=== PATIENT | female | born 1950 | race Caucasian/White ===

== ENCOUNTER 2016-03-11 08:11 | Emergency (ER) | payer BC ==
[2016-03-11] MEDS ORDERED: HYDROmorphone INJ* 1 MG/ML CARPUJECT SYRINGE IV ONE (09:28)
[2016-03-11] MEDS ORDERED: Ondansetron INJ* 2 MG/ML VIAL IV ONE ×2 (09:28→12:58)
[2016-03-11 09:38] LABS: Hematocrit 41 % (35-47); Hemoglobin 13.7 g/dl (12.0-16.0); Mean Corpuscular HGB Conc 34 g/dl (31-36); Mean Corpuscular Hemoglobin 30 pg (27-31); Mean Corpuscular Volume 89 fL (80-97); Mean Platelet Volume 9 um3 (7.4-10.4); Red Blood Count 4.55 10^6/ul (4.0-5.4); Red Cell Distribution Width 14 % (10.5-15); White Blood Count 10.3 10^3/ul (3.5-10.8)
[2016-03-11 09:47] LABS: Urine Bacteria Absent (Absent); Urine Bilirubin Negative (Negative); Urine Glucose Negative (Negative); Urine Nitrite Negative (Negative)
[2016-03-11 09:50] LABS: Albumin 4.3 g/dL (3.2-5.2); BUN/Creatinine Ratio 19.8 (8-20); C Reactive Protein 6.21 mg/L (< 5.00); Calcium 9.6 mg/dL (8.6-10.3); EGFR African American 54.8 (>60); EGFR Non-African American 42.6 (>60); Total Bilirubin 0.9 mg/dL (0.2-1.0); Total Protein 7.3 g/dL (6.4-8.9)
--- NOTE | 2016-03-11 10:27 | RAD ---
INDICATION: RIGHT flank pain, urinary urgency, pink-tinged urine. History of urolithiasis. COMPARISON: April 25, [address] TECHNIQUE: Multidetector CT images were obtained from the lung bases to the ischial tuberosities. Evaluation of the viscera is limited without IV contrast. Multiplanar reformation. REPORT: Minimal chronic linear pleural parenchymal scarring at the RIGHT lung base. The liver, gallbladder, pancreas, and spleen are unremarkable. Small infrasplenic splenule. Negative for CT abnormality of the upper GI, small bowel, retrocecal appendix, or colon. Negative for ascites, free air, hernias. Normal adrenal glands. Small calyceal stones at the mid and lower pole of the RIGHT kidney measuring up to 2 mm. Mild RIGHT hydroureteronephrosis is traced to a 3 mm stone at the RIGHT ureterovesicular junction. Associated mild periureteral and perinephric edema. Negative for LEFT urolithiasis. Small phleboliths noted adjacent to the distal ureters. Aside from the RIGHT UVJ stone the largely decompressed urinary bladder is unremarkable. Unremarkable uterus and adnexal regions. Minimal calcific plaque of normal diameter abdominal aorta. Physiologic distention of the IVC. Negative for suspicious osseous lesions. IMPRESSION: Mild RIGHT hydronephrosis is traced to a 3 mm RIGHT ureterovesicular junction stone. Additional small RIGHT intrarenal collecting system stones.
[2016-03-11] MEDS ORDERED: HYDROmorphone INJ* 1 MG/ML CARPUJECT SYRINGE IV SLOW PU ONE ×2 (10:52→12:52)
[2016-03-11] MEDS ORDERED: NS 0.9% 1000 ML* 2,000 ML IV ONE (10:53)
[2016-03-11 11:55] LABS: Urine Bacteria Absent (Absent); Urine Bilirubin Negative (Negative); Urine Glucose Negative (Negative); Urine Nitrite Negative (Negative)
[2016-03-11] MEDS ORDERED: Tamsulosin CAP* 0.4 MG PO ONE (11:59)
[2016-03-11] MEDS ORDERED: Ondansetron INJ* 2 MG/ML VIAL ONE (12:57)
[2016-03-11 13:35] VITALS: BP 142/66
--- NOTE | 2016-03-11 13:51 | ED ---
Burton Noriega Matthew, scribed for Ezio Lechuga MD on 03/11/16 at 0954 . GI/ HPI - HPI Summary HPI Summary: A 66 y/o female presents to the ED with sudden, constant right flank pain since 05:30 this morning. The pain is rated 9/10 in severity and radiates to the back. The patient states that she attempted to urinated at 05:30 this morning when the pain began. Associated symptoms include difficulty urinating, vomiting , nausea, dysuria and hematuria. The patient saw Dr. High on 03/08/16, where she had an US. At that time, multiple kidney stones were noted. The patient attempted to eat and drink between 06:00-06:30; however, she vomited the food and her medication. She has been unable to get comfortable from the pain. The patient has a Hx of renal lithiasis, but she has never had an obstructed kidney stone in the past. She last ate at 06:30 this morning. - History of Current Complaint Chief Complaint: EDUrogenitalProblems Time Seen by Provider: 03/11/16 09:24 Stated Complaint: RT SIDE FLANK PAIN/POSS KIDNEY STONE Hx Obtained From: Patient Onset/Duration: Started Hours Ago, Atraumatic, Still Present Timing: Constant Severity: Moderate Current Severity: Moderate Pain Intensity: 9 Location of Pain: Flank - right Pain Characteristics: Sharp Pain Radiates to: Back Associated Signs and Symptoms: Positive: Nausea, Vomiting, Dysuria, Other: - hematuria - Allergy/Home Medications Allergies/Adverse Reactions: Allergies Allergy/AdvReac Type Severity Reaction Status Date / Time Acetaminophen [From Tylenol] AdvReac Intermediate See Comment Verified 03/11/16 08:59 Ofloxacin [From Floxin] AdvReac Intermediate Stomach Verified 03/11/16 08:59 Cramps PMH/Surg Hx/FS Hx/Imm Hx Endocrine/Hematology History: Denies: Hx Diabetes, Hx Thyroid Disease Cardiovascular History: Reports: Hx Hypertension Respiratory History: Denies: Hx Asthma, Hx Chronic Obstructive Pulmonary Disease (COPD) GI History: Denies: Hx Ulcer - Surgical History Surgery Procedure, Year, and Place: 2007 Right breast biopsy - benign - duct and cyst was taken out. 01/04/12 - Left breast duct biopsy - benign. 1988 laser laparoscopy for endometriosis. IVF/GIFT . 2 miscarriages. Infectious Disease History: No Infectious Disease History: Denies: Hx Hepatitis, Hx Human Immunodeficiency Virus (HIV), History Other Infectious Disease, Traveled Outside the [place] in Last 30 Days - Family History Known Family History: Negative: Hypertension Family History: No FHx of kidney stones - Social History Alcohol Use: Occasionally Substance Use Type: Reports: None Smoking Status (MU): Never Smoked Tobacco Review of Systems Constitutional: Negative Eyes: Negative ENT: Negative Cardiovascular: Negative Respiratory: Negative Positive: Abdominal Pain - Right Flank Pain , Vomiting, Nausea Genitourinary: Other - Difficulty urinating Positive: dysuria, hematuria Positive: Myalgia - Back Pain Skin: Negative Neurological: Negative Psychological: Normal All Other Systems Reviewed And Are Negative: Yes Physical Exam - Summary Physical Exam Summary: The patient is uncomfortable. The skin is warm and dry and skin color reflects adequate perfusion. HEENT: The head is normocephalic and atraumatic. The pupils are equal and reactive. The conjunctivae are clear and without drainage. Nares are patent and without drainage. Mouth reveals dry mucous membranes and the throat is without erythema and exudate. The external ears are intact. The ear canals are patent and without drainage. The tympanic membranes are intact. Neck is supple with full range of motion and non-tender. There are no carotid bruits. There is no neck vein distension. Respiratory: Chest is non-tender. Lungs are clear to auscultation and breath sounds are symmetrical and equal. Cardiovascular: Heart is regular rate and rhythm. There is no murmur or rub auscultated. There is no peripheral edema and pulses are symmetrical and equal. Abdomen: The abdomen is soft. She has right flank pain and right CVA tenderness. There are normal bowel sounds heard in all four quadrants and there is no organomegaly palpated. Musculoskeletal: Extremities are non-tender with full range of motion. There is good capillary refill. There is no peripheral edema or calf tenderness elicited. Neurological: Patient is alert and oriented to person, place and time. The patient has symmetrical motor strength in all four extremities. Cranial nerves are grossly intact. Deep tendon reflexes are symmetrical and equal in all four extremities. Psychiatric: The patient is anxious. Triage Information Reviewed: Yes Vital Signs On Initial Exam: Initial Vitals Temp Pulse Resp BP Pulse Ox 97.3 F 80 18 153/80 100 03/11/16 08:54 03/11/16 08:54 03/11/16 08:54 03/11/16 08:54 03/11/16 08:54 Vital Signs Reviewed: Yes - Randy Coma Scale Coma Scale Total: 15 Diagnostics - Vital Signs Vital Signs Temp Pulse Resp BP Pulse Ox 03/11/16 08:54 97.3 F 80 18 153/80 100 - Laboratory Lab Results: Lab Results 03/11/16 03/11/16 03/11/16 Range/Units 09:05 09:05 09:05 WBC 10.3 (3.5-10.8) 10^3/ul RBC 4.55 (4.0-5.4) 10^6/ul Hgb 13.7 (12.0-16.0) g/dl Hct 41 (35-47) % MCV 89 (80-97) fL MCH 30 (27-31) pg MCHC 34 (31-36) g/dl RDW 14 (10.5-15) % Plt Count 244 (150-450) 10^3/ul MPV 9 (7.4-10.4) um3 Neut % (Auto) 85.7 H (38-83) % Lymph % (Auto) 9.0 L (25-47) % [place] % (Auto) 4.1 (1-9) % Eos % (Auto) 0.6 (0-6) % Baso % (Auto) 0.6 (0-2) % Absolute Neuts (auto) 8.8 H (1.5-7.7) 10^3/ul Absolute Lymphs (auto) 0.9 L (1.0-4.8) 10^3/ul Absolute Monos (auto) 0.4 (0-0.8) 10^3/ul Absolute Eos (auto) 0.1 (0-0.6) 10^3/ul Absolute Basos (auto) 0.1 (0-0.2) 10^3/ul Absolute Nucleated RBC 0 10^3/ul Nucleated RBC % 0 Sodium 138 (133-145) mmol/L Potassium 4.0 (3.5-5.0) mmol/L Chloride 105 (101-111) mmol/L Carbon Dioxide 24 (22-32) mmol/L Anion Gap 9 (2-11) mmol/L BUN 25 H (6-24) mg/dL Creatinine 1.26 H (0.51-0.95) mg/dL Est GFR ( Amer) 54.8 (>60) Est GFR (Non-Af Amer) 42.6 (>60) BUN/Creatinine Ratio 19.8 (8-20) Glucose 129 H (70-100) mg/dL Lactic Acid (0.5-2.0) mmol/L Calcium 9.6 (8.6-10.3) mg/dL Total Bilirubin 0.90 (0.2-1.0) mg/dL AST 25 (13-39) U/L ALT 31 (7-52) U/L Alkaline Phosphatase 89 (34-104) U/L C-Reactive Protein 6.21 H (< 5.00) mg/L Total Protein 7.3 (6.4-8.9) g/dL Albumin 4.3 (3.2-5.2) g/dL Globulin 3.0 (2-4) g/dL Albumin/Globulin Ratio 1.4 (1-3) Lipase 34 (11.0-82.0) U/L Urine Color Janet Urine Appearance Turbid Urine pH 6.0 (5-9) Ur Specific [place] 1.026 (1.010-1.030) Urine Protein 2+(100 mg/dl) H (Negative) Urine Ketones Negative (Negative) Urine Blood 3+ H (Negative) Urine Nitrate Negative (Negative) Urine Bilirubin Negative (Negative) Urine Urobilinogen Negative (Negative) Ur Leukocyte Esterase 3+ H (Negative) Urine WBC (Auto) 1+(6-10/hpf) H (Absent) Urine RBC (Auto) 1+(3-5/hpf) H (Absent) Ur Squamous Epith Cells (Absent) Urine Bacteria Absent (Absent) Urine Glucose Negative (Negative) 03/11/16 03/11/16 Range/Units 09:05 11:35 WBC (3.5-10.8) 10^3/ul RBC (4.0-5.4) 10^6/ul Hgb (12.0-16.0) g/dl Hct (35-47) % MCV (80-97) fL MCH (27-31) pg MCHC (31-36) g/dl RDW (10.5-15) % Plt Count (150-450) 10^3/ul MPV (7.4-10.4) um3 Neut % (Auto) (38-83) % Lymph % (Auto) (25-47) % [place] % (Auto) (1-9) % Eos % (Auto) (0-6) % Baso % (Auto) (0-2) % Absolute Neuts (auto) (1.5-7.7) 10^3/ul Absolute Lymphs (auto) (1.0-4.8) 10^3/ul Absolute Monos (auto) (0-0.8) 10^3/ul Absolute Eos (auto) (0-0.6) 10^3/ul Absolute Basos (auto) (0-0.2) 10^3/ul Absolute Nucleated RBC 10^3/ul Nucleated RBC % Sodium (133-145) mmol/L Potassium (3.5-5.0) mmol/L Chloride (101-111) mmol/L Carbon Dioxide (22-32) mmol/L Anion Gap (2-11) mmol/L BUN (6-24) mg/dL Creatinine (0.51-0.95) mg/dL Est GFR ( Amer) (>60) Est GFR (Non-Af Amer) (>60) BUN/Creatinine Ratio (8-20) Glucose (70-100) mg/dL Lactic Acid 1.4 (0.5-2.0) mmol/L Calcium (8.6-10.3) mg/dL Total Bilirubin (0.2-1.0) mg/dL AST (13-39) U/L ALT (7-52) U/L Alkaline Phosphatase (34-104) U/L C-Reactive Protein (< 5.00) mg/L Total Protein (6.4-8.9) g/dL Albumin (3.2-5.2) g/dL Globulin (2-4) g/dL Albumin/Globulin Ratio (1-3) Lipase (11.0-82.0) U/L Urine Color Yellow Urine Appearance Cloudy Urine pH 8.0 (5-9) Ur Specific [place] 1.016 (1.010-1.030) Urine Protein Negative (Negative) Urine Ketones 1+ H (Negative) Urine Blood 3+ H (Negative) Urine Nitrate Negative (Negative) Urine Bilirubin Negative (Negative) Urine Urobilinogen Negative (Negative) Ur Leukocyte Esterase Negative (Negative) Urine WBC (Auto) Absent (Absent) Urine RBC (Auto) 3+(>10/hpf) H (Absent) Ur Squamous Epith Cells Present H (Absent) Urine Bacteria Absent (Absent) Urine Glucose Negative (Negative) Result Diagrams: 03/11/16 09:05 03/11/16 09:05 Lab Statement: Any lab studies that have been ordered have been reviewed, and results considered in the medical decision making process. - CT A/P CT Interpretation: Positive (See Comments) - IMPRESSION: Mild RIGHT hydronephrosis is traced to a 3 mm RIGHT ureterovesicular junction stone. Additional small RIGHT intrarenal collecting system stones. CT Interpretation Completed By: Radiologist Re-Evaluation - Re-Evaluation First Eval Re-Evaluation Time: 11:01 Change: Worse Comment: The patient is in more pain. I reviewed labs, CT, and plan of action. She will be given more pain medication. A catheterization urine sample will be taken, and she will be observed. GIGU Course/Dx - Course Course Of Treatment: I initially saw the patient at 09:30 and was unable to exam her, because of pain distress. I gave her pain medication and her pain had improved upon the reexamination. Assessment/Plan: A 66 y/o female presents to the ED with sudden, constant right flank pain since 05:30 this morning. Associated symptoms include difficulty urinating, vomiting, nausea, dysuria and hematuria. Lab results were reviewed. CT A/P shows mild right hydronephrosis is traced to a 3 mm right ureterovesicular junction stone and additional small right intrarenal collecting system stones. Discussed the case with Dr. High who believes the stone will pass on its own. In the ED course, the patient was given 3mg Dilaudid , 2L IV fluids, 8mg Zofran IV, and 0.4mg Flomax. The patient will be discharged home on Percocet, Flomax, and Zofran and follow-up with Dr. Driver office. She was instructed to strain all of her urine. - Diagnoses Differential Diagnoses - Female: Renal Calculi, Renal Colic, Urinary Tract Infection Provider Diagnoses: Kidney stones, Hydronephrosis - Physician Notifications Discussed Care Of Patient With: Dr. High (Urology) at 10:44 -- Notified of patient's history and recommends catheterized urine. Dr. High believes the stone is passable and will try to see the patient. Discharge - Discharge Plan Condition: Stable Disposition: HOME Prescriptions: Ondansetron ODT TAB* [Zofran Odt TAB*] 4 mg PO Q8H PRN #20 tab.odt PRN Reason: nausea Tamsulosin CAP* [Flomax CAP*] 0.4 mg PO DAILY #7 cap oxyCODONE/Acetamin 5/325 MG* [Percocet 5/325 TAB*] 1 tab PO Q6H PRN #20 tab MDD 4 PRN Reason: pain Patient Education Materials: Kidney Stones (ED), How to Strain Your Urine (ED) , Hydronephrosis (ED) Referrals: Laci High MD [Medical Doctor] - 2 Days Additional Instructions: Please follow-up with Dr. High's office. Also, please strain all of your urine. The documentation as recorded by the Burton zabala Matthew accurately reflects the service I personally performed and the decisions made by me, Ezio Lechuga MD.
== END 2016-03-11 13:08 | disposition home or self-care (01) ==
LOC: ED 08:11
DX: N13.2 Hydronephrosis with renal and ureteral calculous obstruction (principal)
CPT/HCPCS: 36415; 74176; 80053; 81003; 81015; 83605; 83690; 85025; 86140; 87086; 96360; 96374; 96375; 96376; 99284; J1170; J2405

== ENCOUNTER 2019-04-02 20:37 | Observation (INO) | payer BC, OTHER ==
--- OUTSIDE RECORDS SUMMARY | 2019-04-02 21:56 | XMS REPORT | Continuity of Care Document ---
:1950 External Reference #:[id number] Author Name Abundio Malave M.D. [address] [place] [address] Care Team Providers Name Role Phone Franc Rebolledo MD - Internal Medicine Care Team Information [employer] Tender [phone] Problems Active Problems Provider Date Presbyopia Abundio Malave M.D. Onset: 01/27/2015 Incipient senile cataract Abundio Malave M.D. Onset: 01/27/2015 Social History Type Date Description Comments Sex Unknown ETOH Use Occasionally consumes alcohol Tobacco Use Start: Unknown Patient has never smoked Smoking Status Reviewed: 03/01/19 Patient has never smoked Allergies, Adverse Reactions, Alerts Active Allergies Reaction Severity Comments Date NKDA 01/27/2015 Cats 01/27/2015 Seasonal 01/27/2015 Medications Active Medications SIG Qnty Indications Ordering Provider Date Zyrtec Allergy prn Unknown 10mg Capsules Vagifem Bid Unknown 10mcg Tablets Naproxen as Needed Unknown 500mg Tablets Omeprazole prn Unknown 40mg Capsules DR Immunizations Description No Information Available Vital Signs Date Vital Result Comment 11/24/2018 3:24pm Intraocular Pressure Right Eye 15 mmHg Intraocular Pressure Left Eye 15 mmHg 06/01/2017 11:41am Intraocular Pressure Right Eye 15 mmHg Intraocular Pressure Left Eye 15 mmHg Results Description No Information Available Procedures Date Code Description Status 11/24/2018 58462 Refraction Completed 11/24/2018 51883 Eye Exam Est Intermediate Completed Medical Devices Description No Information Available Encounters Description No Information Available Assessments Date Code Description Provider 03/01/2019 H25.813 Combined forms of age-related cataract, Abundio Malave M.D. bilateral 11/24/2018 H25.813 Combined forms of age-related cataract, Abundio Malave M.D. bilateral 11/24/2018 H04.201 Unspecified epiphora, right side Abundio Malave M.D. Plan of Treatment No Information Available Functional Status Description No Information Available Mental Status Description No Information Available Referrals Description No Information Available
[2019-04-02] MEDS ORDERED: NS 0.9% 1000 ML** 1,000 ML IV ONE (23:06)
--- NOTE | 2019-04-02 23:11 | ED ---
Syncope/Near Syncope - HPI Summary HPI Summary: Patient complains of one episode of witnessed syncope after dinner tonight. Patient states she was feeling lightheaded at the table, and then got up quickly to go get some aspirin as she was concerned about possible stroke. Patient took a few steps and then had syncopal episode. Patient was caught by before she fell. Patient states her told her she was unresponsive with eyes open for about 2 minutes. Denies postictal phase. Symptoms completely resolved. Denies prior history of syncope, admits to recurrant episodes of lightheadedness with position change. Admits to one glass and a half of wine with dinner. Denies fever, cough, sore throat, CP, SOB , N/C/D, abdominal pain, change in urine, change in BM. Medical history as reflux, cholesterol. Denies recreational drug use. - History Of Current Complaint Chief Complaint: EDSyncope Time Seen by Provider: 04/02/19 23:00 Hx Obtained From: Patient Onset/Duration: Sudden Onset, Lasting Minutes Timing: Minutes Context: Witnessed Activity At Onset: Exertion Associated Head Trauma: No Aggravating Factor(s): Position Change Alleviating Factor(s): Spontaneous Resolution Associated Signs And Symptoms: Negative - Allergies/Home Medications Allergies/Adverse Reactions: Allergies Allergy/AdvReac Type Severity Reaction Status Date / Time ofloxacin Allergy Intermediate Stomach Verified 04/03/19 03:26 Cramps acetaminophen Allergy See Comment Verified 04/03/19 03:26 azithromycin [From Zithromax] Allergy Unknown Verified 04/02/19 20:53 Reaction Details Home Medications: Home Medications Clotrimazole 1% TOPICAL (NF) 04/03/19 [History] PMH/Surg Hx/FS Hx/Imm Hx Endocrine/Hematology History: Denies: Hx Diabetes, Hx Thyroid Disease Cardiovascular History: Reports: Hx Hypertension Respiratory History: Denies: Hx Asthma, Hx Chronic Obstructive Pulmonary Disease (COPD) GI History: Denies: Hx Ulcer History: Denies: Hx Dialysis Musculoskeletal History: Denies: Hx Osteoporosis Sensory History: Denies: Hx Glaucoma Opthamlomology History: Denies: Hx Legally Blind EENT History: Denies: Hx Deafness Neurological History: Denies: Hx Dementia - Surgical History Surgery Procedure, Year, and Place: 2007 Right breast biopsy - benign - duct and cyst was taken out. 01/04/12 - Left breast duct biopsy - benign. 1988 laser laparoscopy for endometriosis. IVF/GIFT . 2 miscarriages. Infectious Disease History: No Infectious Disease History: Denies: Hx Hepatitis, Hx Human Immunodeficiency Virus (HIV), History Other Infectious Disease, Traveled Outside the [place] in Last 30 Days - Family History Known Family History: Positive: None Negative: Hypertension Family History: No FHx of kidney stones - Social History Alcohol Use: Occasionally Substance Use Type: Reports: None Smoking Status (MU): Never Smoked Tobacco Review of Systems Constitutional: Negative Eyes: Negative ENT: Negative Cardiovascular: Negative Respiratory: Negative Gastrointestinal: Negative Genitourinary: Negative Musculoskeletal: Negative Skin: Negative Positive: Syncope Psychological: Normal All Other Systems Reviewed And Are Negative: Yes Physical Exam - Summary Physical Exam Summary: Neurological exam normal. Triage Information Reviewed: Yes Vital Signs On Initial Exam: Initial Vitals Temp Pulse Resp BP Pulse Ox 98.1 F 66 18 154/84 96 04/02/19 20:49 04/02/19 20:49 04/02/19 20:49 04/02/19 20:49 04/02/19 20:49 Vital Signs Reviewed: Yes Appearance: Positive: Well-Appearing Skin: Positive: Warm Head/Face: Positive: Normal Head/Face Inspection Eyes: Positive: Normal Neck: Positive: Supple Respiratory/Lung Sounds: Positive: Clear to Auscultation Cardiovascular: Positive: Normal Abdomen Description: Positive: Nontender Musculoskeletal: Positive: Normal Neurological: Positive: Normal Psychiatric: Positive: Normal AVPU Assessment: Alert - [place] Coma Scale Best Eye Response: 4 - Spontaneous Best Motor Response: 6 - Obeys Commands Best Verbal Response: 5 - Oriented Coma Scale Total: 15 Procedures - Sedation Patient Received Moderate/Deep Sedation with Procedure: No Diagnostics - Vital Signs Vital Signs Temp Pulse Resp BP Pulse Ox 04/02/19 20:49 98.1 F 66 18 154/84 96 - Laboratory Result Diagrams: 04/03/19 05:49 04/03/19 05:49 Lab Statement: Any lab studies that have been ordered have been reviewed, and results considered in the medical decision making process. Course/Dx Course Of Treatment: Patient complains of one episode of witnessed syncope after dinner tonight. Patient states she was feeling lightheaded at the table, and then got up quickly to go get some aspirin as she was concerned about possible stroke. Patient took a few steps and then had syncopal episode. Patient was caught by before she fell. Patient states her told her she was unresponsive with eyes open for about 2 minutes. Denies postictal phase. Symptoms completely resolved. Denies prior history of syncope, admits to recurrant episodes of lightheadedness with position change. Admits to one glass and a half of wine with dinner. Denies fever, cough, sore throat, CP, SOB , N/C/D, abdominal pain, change in urine, change in BM. Medical history as reflux, cholesterol. Denies recreational drug use. Vital signs within normal limits. Labs unremarkable. EKG sinus bradycardia with heart rate of 55. Patient heart rate dropped into the high 40s on a couple occasions. Patient denies known history of bradycardia. Patient admitted to hospitalist. - Diagnoses Provider Diagnoses: Syncope, Bradycardia Discharge ED - Sign-Out/Discharge Documenting (check all that apply): Patient Departure - Discharge Plan Condition: Good Disposition: ADMITTED TO [facility] - Billing Disposition and Condition Condition: GOOD Disposition: Admitted to [facility]
[2019-04-02 23:46] LABS: ABS Basophils 0.1 10^3/ul (0-0.2); ABS Eosinophils 0.2 10^3/ul (0-0.6); ABS Lymphocytes 1.3 10^3/ul (1.0-4.8); ABS Monocytes 0.3 10^3/ul (0-0.8); ABS Neutrophils 5.6 10^3/ul (1.5-7.7); Eosinophil % 2.7 %; Hematocrit 41 % (35-47); Hemoglobin 13.9 g/dL (12.0-16.0); Lymphocyte % 17.7 %; Mean Corpuscular HGB Conc 34 g/dL (31-36); Mean Corpuscular Hemoglobin 30 pg (27-31); Mean Corpuscular Volume 89 fL (80-97); Nucleated Red Blood Cells % 0.1; Platelet Count 304 10^3/uL (150-450); Red Blood Count 4.58 10^6 /uL (3.70-4.87); Red Cell Distribution Width 13 % (10-15); White Blood Count 7.6 10^3/uL (3.5-10.8)
[2019-04-03 00:06] LABS: Albumin 4.5 g/dL (3.2-5.2); Albumin/Globulin Ratio 1.4 (1-3); BUN/Creatinine Ratio 19.4 (8-20); C Reactive Protein 8.52 mg/L (<8.01); Calcium 9.8 mg/dL (8.6-10.3); EGFR African American 68.3 (>60); EGFR Non-African American 56.4 (>60); Globulin 3.2 g/dL (2-4); Magnesium 2.4 mg/dL (1.9-2.7); Potassium 4.3 mmol/L (3.5-5.0); Total Bilirubin 0.5 mg/dL (0.2-1.0); Total Protein 7.7 g/dL (6.4-8.9)
[2019-04-03 00:43] LABS: TSH (Thyroid Stimulating Horm) 1.51 mcIU/mL (0.34-5.60)
[2019-04-03 01:32] LABS: Urine Appearance Cloudy; Urine Bilirubin Negative (Negative); Urine Blood 1+ (Negative); Urine Color Yellow; Urine Glucose Negative (Negative); Urine Ketones Negative (Negative); Urine Nitrite Negative (Negative); Urine Protein Negative (Negative); Urine Specific Gravity 1.011 (1.010-1.030); Urine Urobilinogen Negative (Negative)
[2019-04-03 01:33] LABS: Urine Bacteria 1+ (Absent); Urine Red Blood Cell 2+(6-10/hpf) (Absent); Urine Squamous Epithelial Cell Present (Absent); Urine White Blood Cell 3+(>20/hpf) (Absent)
[2019-04-03] MEDS ORDERED: Ondansetron INJ* 2 MG/ML VIAL IV PRN (03:16)
[2019-04-03] MEDS ORDERED: Iodixanol* (CONTRAST) 320 MG/ML 100 ML SDV IV ONE (03:29)
[2019-04-03] MEDS ORDERED: NS 0.9% 1000 ML** 1,000 ML IV SCH (03:30)
[2019-04-03] MEDS ORDERED: cefTRIAXone(*) 1 GM in NS 0.9% 50 ML* 50 ML IVPB SCH (04:00)
[2019-04-03 06:08] LABS: Activated Partial Thrombo Time 29.5 seconds (26.0-38.0); INR 1.01 (0.82-1.09)
--- NOTE | 2019-04-03 06:14 | HP ---
CC: Dr. Brown * HISTORY AND PHYSICAL: DATE OF ADMISSION: 04/03/19 PRIMARY CARE PROVIDER: Dr. Brown. ATTENDING PHYSICIAN WHILE IN THE HOSPITAL: Dr. Zeng * (report dictated by Avis Garcia NP). CHIEF COMPLAINT: Syncope. HISTORY OF PRESENTING ILLNESS: Mrs. Castro is a 69-year-old female patient, she carries a history of hypertension, not on medications; endometriosis; and a history of kidney stones, who states that this evening she was looking down at her phone researching something and she went to just move her neck, extend her neck, upright again to talk to her , and once she did, she became very dizzy. She then stood up and felt like she was going to faint. Her came to her aid, lowered her down to the ground, and then she did pass out. She apparently vomited. There were no reports of tongue biting, no reports of urinary incontinence. She notes that when she came to, she recognized where she was. She was confused in the sense that she did not know why she vomited. She denied any chest pain or palpitations before this. She did admit to having the dizziness. She denied having any sensation that the room was spinning. She felt lightheaded. She states that she did not have a headache. She denied having any, again, palpitations or shortness of breath prior to or after these events. The event lasted about a minute. She remembers the ride into the hospital and did not have a prolonged period of confusion there afterwards. She denies any recent new medications and denies having any fever, chills, and no vomiting prior to this. She came into the ED, and while in the ED, it was noted at times that her heart rate was hovering in the 40s. Because of these findings, we were asked to evaluate for admission. PAST MEDICAL HISTORY: Significant for: 1. Hypertension. 2. Endometriosis. 3. Kidney stones. PAST SURGICAL HISTORY: She has had a laparoscopy. MEDICATIONS: Home medications include: 1. Cetirizine 10 mg p.o. daily. 2. Calcium carbonate 500 mg twice a day. 3. Estradiol vaginal tab 10 mcg vaginally weekly. ALLERGIES TO MEDICATIONS: Include AZITHROMYCIN, TYLENOL, and OFLOXACIN. FAMILY HISTORY: Her mother had Parkinson's. Father had bladder cancer. Her father's father had a history of skin cancer, and her father's mother had a history of breast cancer. SOCIAL HISTORY: She does not smoke. She occasionally drinks wine. Surrogate decision maker is her . REVIEW OF SYSTEMS: Again, there is no documented fever. She denies having any significant weight change. She denies having any double vision. No ear discharge. No rhinorrhea. No sore throat. No chest pain. No orthopnea. No nocturnal dyspnea. No abdominal pain. There was 1 episode of nausea and vomiting. No dysuria. No frequency. There was loss of consciousness. Review of 14 systems completed, all others negative. PHYSICAL EXAMINATION GENERAL: At this time, Mrs. Castro is a 69-year-old female patient. She is sitting in the ED stretcher. She appears to be well nourished, well developed. She does not appear to be in any acute distress. VITAL SIGNS: Blood pressure 157/69 with a pulse of 54, respirations 21, O2 saturation 98%. HEENT: Head: Atraumatic and normocephalic. Eyes: EOMs are intact. Sclerae are anicteric and not pale. Throat: Oral mucosa appears to be moist. No oropharyngeal erythema. NECK: Supple. LUNGS: Clear to auscultation bilaterally. No wheezes, rales, or rhonchi. HEART: Heart sounds S1, S2. She is bradycardic, but she had no murmurs, rubs, or gallops. ABDOMEN: Soft, flat, nontender. Bowel sounds present. EXTREMITIES: Pulses were 2+ throughout. She is moving all 4 extremities with 5 /5 strength. NEUROLOGIC: The patient is awake. She is alert. She is oriented x3. Tongue is midline. Price Lister were equal. She had no gross focal deficits. SKIN: Intact. DIAGNOSTIC STUDIES/LAB DATA: WBC 7.6, RBC 4.58, hemoglobin 13.9, hematocrit 41 , and a platelet count of 304. Sodium was 138, potassium was 4.3, chloride of 106, bicarb 27, BUN 19, creatinine 0.98, glucose 113, calcium 9.8, magnesium 2.4. Total bilirubin 0.5, AST 22, ALT 22, alkaline phos 103. Troponin is 0, repeat troponin is 0. CRP 8.53. TSH normal. Urine showed 1+ blood, 3+ leukocyte esterase, 3+ rbc's, 3+ wbc's, 1+ bacteria. She had an EKG obtained today which showed sinus bradycardia at the rate of 45. No ST elevation. No T-wave progression. No previous EKG for comparison. Old medical records were reviewed. ASSESSMENT AND PLAN: Mrs. Castro is a 69-year-old female patient coming into the ED today with complaints of feeling dizzy while sitting in the chair and then she stood up and had a syncopal episode and now found to have bradycardia here in the ER. She will be admitted under observation status for: 1. Syncope, etiology is unclear. She did have dizziness, which again did get worse with neck flexion and extension, so because of this, I am going to get a CTA of the head and the neck to make sure there is no stenosis of the vertebral or intracranial arteries that may have contributed. I am also going to get a CT of the brain. Because of the syncope and the fact that she was bradycardic, I am going to get a cardiology consult, check an echocardiogram, Lyme screen, and repeat one more troponin and check an EKG in the morning and check orthostatic blood pressure, and we will continue with supportive care. 2. Bradycardia. Again, etiology unclear. We will certainly touch base with Cardiology tomorrow. I have ordered an echocardiogram, telemetry, and troponin. She is asymptomatic at this point. We will continue to follow. 3. Hypertension. She is not currently on medications. I will defer management to her PCP. 4. History of endometriosis. Continue her current medical regimen. Defer management to the PCP. 5. DVT prophylaxis. She is high risk. She will be placed on heparin subcutaneously. 6. Code status is full code. 7. Fluids, electrolytes, and nutrition: She can have a heart-healthy diet. 8. Urinary tract infection: I do note that her urine did return positive for possible urinary tract infection. I will place her on Rocephin. We will await cultures. TIME SPENT: Time spent on this admission was approximately 60 minutes, greater than half of the time spent [id number] with the patient obtaining my history and physical, the other half of the time was spent going over the plan of care with the patient and implementing the plan of care. I did discuss the plan of care with my attending, Dr. Zeng; he is in agreement. AVIS GARCIA NP [id number]/[facility] #: [id number] DAVID
[2019-04-03] MEDS: Heparin VIAL(*) 5000 UNITS/ML VIAL (FIVE THOUSAND) SUBCUT SCH ×2 (06:15→15:56)
[2019-04-03 06:17] LABS: ABS Basophils 0.1 10^3/ul (0-0.2); ABS Eosinophils 0.2 10^3/ul (0-0.6); ABS Lymphocytes 1.7 10^3/ul (1.0-4.8); ABS Monocytes 0.5 10^3/ul (0-0.8); ABS Neutrophils 4.3 10^3/ul (1.5-7.7); BUN/Creatinine Ratio 17.6 (8-20); Calcium 8.6 mg/dL (8.6-10.3); EGFR African American 80.5 (>60); EGFR Non-African American 66.5 (>60); Eosinophil % 3.3 %; Hematocrit 38 % (35-47); Hemoglobin 13.1 g/dL (12.0-16.0); Lymphocyte % 25.2 %; Mean Corpuscular HGB Conc 34 g/dL (31-36); Mean Corpuscular Hemoglobin 31 pg (27-31); Mean Corpuscular Volume 89 fL (80-97); Mean Platelet Volume 8.1 fL (7.4-10.4); Platelet Count 267 10^3/uL (150-450); Potassium 3.7 mmol/L (3.5-5.0); Red Blood Count 4.27 10^6 /uL (3.70-4.87); Red Cell Distribution Width 13 % (10-15); White Blood Count 6.8 10^3/uL (3.5-10.8)
--- NOTE | 2019-04-03 10:17 | ECHO ---
*[facility]* [place] [address] Fax #: [phone] Transthoracic Echocardiogram Patient: Lilliam Castro : 1950 Study Date: 04/03/2019 Age: 69 Gender: F HR: 54 bpm Height: 63 in /160 cm BSA: 1.95 m^2 Weight: 181.6 lb /82.6 kg BMI: 32.2 kg/m^2 *[employer]iln Fireman: * Belia Jones RD *Referring Physician: * Kirill Garcia *Reading Physician: * Henry Orlando MD Indications: Syncope. History: Risk factors: Hypertension. Obese. Conclusions Summary: - Left ventricle: Systolic function is normal. The estimated ejection fraction is 60-65%. Wall motion is normal; there are no regional wall motion abnormalities. - Right ventricle: Systolic function is normal. - Mitral valve: There is trace regurgitation. - Aortic valve: There is no evidence of stenosis. - Tricuspid valve: There is trace regurgitation. - Pulmonary arteries: Systolic pressure can not be accurately estimated. - Study data: No prior study is available for comparison. Study data: Transthoracic echocardiogram. Procedure: Transthoracic echocardiography was performed. Image quality was good. Complete 2D, spectral Doppler, and color flow Doppler. Location: Bedside. Patient status: Inpatient. Patient room number: 444-01. No prior study is available for comparison. Rhythm: Bradycardia. Findings Left ventricle: The cavity size is below normal. Wall thickness is mildly increased. Systolic function is normal. The estimated ejection fraction is 60-65%. Wall motion is normal; there are no regional wall motion abnormalities. Doppler parameters are consistent with abnormal left ventricular relaxation (grade 1 diastolic dysfunction). Right ventricle: The cavity size is mildly dilated. Systolic function is normal. Left atrium: The atrium is normal in size. Right atrium: The atrium is normal in size. Mitral valve: The leaflets are mildly thickened. There is no evidence of stenosis. There is trace regurgitation. Aortic valve: The valve is trileaflet. The leaflets are mildly thickened. There is no evidence of stenosis. There is trace regurgitation. Tricuspid valve: The leaflets are normal thickness. There is no evidence of stenosis. There is trace regurgitation. Pulmonic valve: The leaflets are normal thickness. There is no evidence of stenosis. There is trace regurgitation. Aorta: Aortic root: The aortic root is appears normal. Ascending aorta: The ascending aorta is appears normal. Aortic arch: The aortic arch is appears normal. Pericardium: A prominent pericardial fat pad is present. There is no significant pericardial effusion. Pulmonary arteries: The main pulmonary artery is normal-sized. Systolic pressure can not be accurately estimated. Systemic veins: Inferior vena cava: The vessel is normal in size. There is (>= 50%) respiratory change in the IVC dimension. Measurements Left ventricle Value Ref Aortic valve Value Ref DIANA, LAX (L) 3.5 cm 3.8 - Jayy diam, S (L) 1.8 cm 1.9 - 2.7 5.2 Jayy diam/bsa, S (L) 0.9 cm/m^2 1.1 - 1.5 ESD, LAX 2.4 cm 2.2 - Peak v, S 1.26 m/sec --------- 3.5 VTI, S 26.1 cm --------- FS, LAX 32 % 45 Mean grad, S 2.8 mm Hg --------- PW, ED, LAX 0.9 cm 0.6 - Peak grad, S 6.3 mm Hg --------- 0.9 LVOT/AV, VTI ratio 1.05 --------- FS 32 % 27 - 45 PW, ED 0.9 cm 0.6 - Mitral valve Value Ref 0.9 Peak E 1.02 m/sec --------- E', lat jayy, TDI 10.1 cm/sec >=10.0 Peak A 1.14 m/sec - -------- E/e', lat jayy, TDI 10 -------- Decel time 151 ms ---- ----- E', med jayy, TDI 8.0 cm/sec >=7.0 Peak grad, D 4.2 mm Hg - -------- E/e', med jayy, TDI 13 -------- Peak E/A ratio 0.9 ---- ----- E', avg, TDI 9.1 cm/sec -------- E/e', avg, TDI 11 <=14 Pulmonic valve Value R ef Peak v, S 0.65 m/sec --------- LVOT Value Ref Peak grad, S 1.7 mm Hg --------- Peak anyi, S 1.19 m/sec -------- VTI, S 27.3 cm -------- Aortic root Value Ref Peak grad, S 6 mm Hg -------- Root diam 3.3 cm <4.1 Mean grad, S 3 mm Hg -------- Ascending aorta Value Ref Ventricular septum Value Ref AAo AP diam, S 3.4 cm --------- IVS, ED (H) 1.1 cm 0.6 - 0.9 Aortic arch Value Ref Arch diam 2.3 cm --------- Right ventricle Value Ref DIANA, LAX 3.6 cm -------- Decending aorta Value Ref DIANA minor ax, A4C (H) 3.6 cm 1.9 - Angela peak anyi 0.64 m/sec --------- mid 3.5 Inferior vena cava Value Ref Left atrium Value Ref Diam 1.6 cm --------- LA ID 3.2 cm -------- SI dim ES, LAX 3.2 cm -------- ML dim, A4C 3.8 cm -------- SI dim, A4C 4.6 cm -------- Vol, ES, 2-p 54 ml -------- Vol/bsa, ES, 2-p 28 ml/m^2 16 - 34 Right atrium Value Ref SI dim, ES 4.4 cm 3.4 - 5.3 ML dim, ES, A4C 3.0 cm 2.6 - 4.4 Estimated RAP 3 mm Hg -------- Legend: (L) and (H) violeta values outside specified reference range. Prepared and electronically signed by Henry Orlando MD 04/03/2019 10:16
--- NOTE | 2019-04-03 11:33 | CONS ---
CC: Dr. Marli Brown CONSULTATION REPORT: DATE OF CONSULT: 04/03/19 ATTENDING PHYSICIAN: Dr. Henry Orlando, Cardiology (dictated by Moraima Thomas NP). PRIMARY PHYSICIAN: Dr. Marli Brown. REASON FOR CONSULT: Syncope. HISTORY OF PRESENT ILLNESS: This is a pleasant 69-year-old female patient with a notable history of hyperlipidemia, controlled via lifestyle modification; in addition to hiatal hernia; gastric reflux; and reported hypertension, not on medical therapy. The patient presented to [facility] on the evening of 04/02/19 after developing a syncopal episode. The patient states historically, she would develop dizziness with carotid massage, which occurred while in [place] during an exercise class she states she had a low risk stress test at that time. Historically hyperflexing her head ( looking down) would also induce dizziness. Her last episode of syncope occurred with administration of anesthesia per patient. Other than that, she has never had a syncopal episode. Yesterday evening, she reports consuming a rather large meal in addition to a glass and a half of wine. While sitting and watching TV, she was looking down at her phone, which again historically would induce dizziness. The patient states she did in fact develop dizziness while looking down. She decided to walk to the kitchen to take an aspirin due to concern of having stroke. With ambulation, dizziness progressed. She states her assisted her to a sitting position. She states that she remembers him talking to her and remembers him calling EMS; however, she states at some point in time , she believes she lost consciousness because she does not recall vomiting. The patient denies hitting head, it is not clear that she actually lost her postural tone because her assisted her to a sitting position. The patient denies chest pain, palpitations. Prodromal symptoms include dizziness. After episode, she denies any profound fatigue, persistent dizziness or lightheadedness. The patient states retrospectively, she has been concerned because the last couple of garcia on her hiking trips to [place], she has not been able to participate with her family members due to exertional dyspnea and exertional dizziness. Last ischemic evaluation was via exercise nuclear stress test in 2004. She was able to exercise for 7 minutes and 21 seconds, maximum heart rate was 158 beats per minute achieving 95% of her maximum predicted heart rate. Per [facility] report, there was normal perfusion imaging. Echocardiogram pending. According to hospitalist's history and physical while the patient was being evaluated in the emergency room, at times her heart rate was in the 40s; however , she was not symptomatic at that time. Her troponin was normal. No ischemic ECG changes. Upon further review of medical records, it appears that the patient has a notable history of relative bradycardia, in fact when she had her colonoscopy in 2019, I did personally review telemetry. Heart rate at that time was 50 beats per minute. She offers no further complaints at this time. PAST MEDICAL HISTORY: 1. Hyperlipidemia. Reports LDL was 170 in the fall of 2018 at primary care provider's office. 2. Reported hypertension, not on medical therapy. 3. GERD. 4. Endometriosis. 5. Estrogen therapy use. PAST SURGICAL HISTORY: 1. Colonoscopy. 2. Laser laparoscopy due to endometriosis. 3. IBS. HOME MEDICATIONS: Listed includes, 1. Zyrtec as needed. 2. Tums as needed. 3. Estradiol 10 mcg apply vaginal weekly. ALLERGIES: Listed includes, 1. TYLENOL, which causes a rash. 2. AZITHROMYCIN, rash. 3. OFLOXACIN, unknown reaction. FAMILY HISTORY: Noncontributory. SOCIAL HISTORY: The patient is . Lives at home with her . She is a retired wildlife biology internship. In regards to physical activity, she lives a fairly sedentary lifestyle. Most exertional thing is walking her dog, which she does not do on a regular basis. She states that in the past, her physical activity had been limited due to arthritis; however, she is concerned because they will have several camping trips in [place], she has not been able to hike with her family due to exertional shortness of breath and dizziness. She drinks alcohol socially. Denies illegal drug use. Denies tobacco use. Listed as full code. REVIEW OF SYSTEMS: All systems have been reviewed and otherwise negative except what was abovementioned in the HPI. PHYSICAL EXAM: Vital Signs: Temperature 98.1, pulse 64, respirations 16, oxygenation 98%, blood pressure 139/61. General: The patient is lying upright in bed, talking on phone upon entering room. Appears well nourished, in no apparent distress, cooperative with physical examination. HEENT: Head is atraumatic, normocephalic. Oral mucosa is moist. Tongue is midline. Neck: Supple. Trachea midline. Cardiac: Normal S1, S2. Regular rate and rhythm. No murmur, rub or gallop noted. Lungs: Auscultated posteriorly, no evidence of adventitious breath sounds. Respirations are nonlabored. /GI: Abdomen is soft, nontender, nondistended. Normoactive bowel sounds x4. Extremities: No pedal edema, no clubbing, no cyanosis. Peripheral Vascular: 2+ brachial and dorsalis pedis pulse palpated bilaterally and symmetrically. Skin: Intact. No evidence of jaundice, rashes or ecchymosis appreciated. DIAGNOSTIC STUDIES/LAB DATA: Blood work at [facility] was reviewed; white count 6.8, hemoglobin 13.1, hematocrit 38, platelets 267. INR 1.01. Sodium 140, potassium 3.7, chloride 109, carbon dioxide 25, BUN 15, creatinine 0.85. Troponin negative x3. TSH 1.5. ECG, 04/03/19; reviewed, sinus bradycardia, rate 51, AK interval 145, no ischemic ECG changes appreciated. ECG, 04/02/19; reviewed, sinus bradycardia, rate 55. No ST changes appreciated. Telemetry reviewed, the patient has been in sinus bradycardia, heart rate 45 to 50 beats per minute. Asymptomatic, no pauses appreciated. Imaging performed while in the emergency department: The patient had a head CTA. Per Radiology report, no acute findings. No hemodynamically significant cervical, carotid or vertebral artery stenosis. Hypoplastic right vertebral artery. Incidental 8 mm hypodense nodule involving the right thyroid lobe. Echocardiogram pending. ASSESSMENT AND PLAN: 1. Syncope: In the past, lightheadedness would be reproduced with carotid massage and exertion. She states that dizziness has also been associated with position of head. She adds that historically looking down on her phone would induce dizziness and lightheadedness, which is what had occurred when dizziness started yesterday evening around 6:30 p.m. Symptomatology appears to be more consistent with benign positional vertigo. Of note, she has a history of relative bradycardia during her hospital stay. Heart rate has been between 45 and 55, however, she is asymptomatic. Of note, she expressed concern of ongoing dyspnea on exertion and exertional lightheadedness historically with more than typical activities such has hiking. Risk factors include hyperlipidemia, reported hypertension, age and estrogen use. We will update exercise nuclear stress test to rule out ischemia in addition to rule out chronotropic insufficiency. Her last ischemic evaluation was in 2004. At that time, she was able to achieve 95% of maximum predicted heart rate. We will follow closely and make further recommendations. 2. Hyperlipidemia: Reports LDL was 170 in the fall of 2018. Goal LDL in the setting of not having coronary artery disease is less than 130. She opted to manage via lifestyle modification. She is to follow up with her PCP in regards to hyperlipidemia. 3. Relative bradycardia: Please refer to above #1. 4. Disposition: Pending course. We will make recommendations following echocardiogram and exercise nuclear stress test and follow closely. Dr. Henry Orlando agrees with the above treatment plan. MORAIMA THOMAS NP [id number]/[facility] #: [id number] DAVID
[2019-04-03] MEDS ORDERED: Regadenoson* 0.4 MG/5 ML SYRINGE ONE (13:48)
[2019-04-03 15:27] VITALS: BP 112/56
--- NOTE | 2019-04-04 00:36 | DS ---
CC: Dr. Marli Brown; Dr. Amna Walsh * DISCHARGE SUMMARY: DATE OF ADMISSION: 04/03/19 DATE OF DISCHARGE: 04/03/19 PRIMARY CARE PROVIDER: Dr. Marli Brown. ATTENDING PHYSICIAN: Dr. Amna Walsh * (dictated by FIONA Hatfield) PRIMARY DIAGNOSES: 1. Syncope, likely orthostatic hypotension. 2. Dizziness, likely benign paroxysmal positional vertigo. 3. Asymptomatic bacteruria. SECONDARY DIAGNOSES: 1. Hypertension. 2. History of hyperlipidemia. 3. Endometriosis. 4. Kidney stones. STUDIES WHILE IN THE HOSPITAL: 1. CT brain without, impression: No acute intracranial abnormality. 2. CTA head and neck, impression: No acute findings. No hemodynamically significant narrowing of the cervical, carotid, or vertebral arteries. Hypoplastic right vertebral artery. Hyperdense nodule located in the right thyroid node, this measures approximately 8 mm in length, this does not require further analysis or followup. 3. Transthoracic echocardiogram, summary: LV systolic function, normal estimated EF 60% to 65%, wall motion is normal. No RWMA, RV systolic function normal, trace MR, no evidence of , trace TR. Pulmonary artery systolic pressure cannot be accurately measured. 4. Nuclear cardiac stress test, impression: No fixed or reversible perfusion defect. Normal ejection fraction and wall motion. Assessment, low risk. 5. EKG, stress test, assessment: Low risk. CONSULTATIONS WHILE IN THE HOSPITAL: Cardiology. DISCHARGE MEDICATIONS: Home medications: 1. Calcium carbonate 500 mg p.o. daily p.r.n. 2. Cetirizine 10 mg p.o. daily p.r.n. 3. Clotrimazole 1% topical application. 4. Estradiol vaginal tablet 10 mcg vaginally weekly. HISTORY OF PRESENT ILLNESS/HOSPITAL COURSE: Ms. Castro is a 69-year-old female with a past medical history of hypertension and hyperlipidemia, not on medications, who presented to the ER this morning with complaints of dizziness and a syncopal episode. The patient states she was looking down at her phone and when she looked up, she became dizzy. She then stood up, started to feel lightheaded and worsening dizziness. She grabbed a nearby counter to steady herself because she felt presyncopal. Her then helped her to the floor. She reports that she believes she experienced loss of consciousness as she woke up and noted that she had vomited and has no recollection of this. She had no head or neck injury. She reported a prodrome prior to the syncopal event as described above. The patient reports that she has had dizziness for the last approximately 1 to 2 years, which she reports as intermittent and typically associated with head movements. The patient arrived at the ER. CT of the brain showed no acute abnormalities. CTA of the head and neck shows no hemodynamically significant narrowing of the cervical carotid or vertebral arteries and no acute findings in the brain. Echo revealed no gross valvular abnormalities, ejection fraction of 60% to 65%, no regional wall motion abnormalities. Nuclear medicine stress testing was performed and was low risk in both nuclear med and EKG portion. Cardiology consult was obtained for further recommendations and they recommended CTA of the head and neck to assess for stenosis, which was negative, as described above. CT of the brain was unremarkable. An echocardiogram was unremarkable and Lyme screen was negative. The patient is mildly bradycardic with a normal NC interval. Orthostatic blood pressures were within normal limits, although this is difficult to rely on as the patient had received 1 L fluid bolus prior. The suspicion is that the patient's syncopal episode was related to vasovagal event or orthostatic hypotension. She also reports frequent dizziness; this is likely vertigo. She was offered meclizine, which she declined. A urinalysis was obtained and revealed 1+ bacteria, 3+ LE, negative nitrites. There was initially some concern that she may have a UTI. The patient is asymptomatic. She was given 2 doses of ceftriaxone. At this time, we will discontinue antibiotics as she is asymptomatic. During her stay, the patient was monitored. She was at times mildly bradycardic with rate in the 50s, but this was typically overnight. Blood pressure was monitored and she was between 104 and 150s systolic throughout her stay. At the time of discharge, the patient states she is feeling well. She denies dizziness or lightheadedness recently. She has experienced no syncopal episodes. She denies chest pain, shortness of breath, cough, fever, chills, abdominal pain, nausea, vomiting, diarrhea, constipation, myalgias, arthralgias. Ms. Castro is stable for discharge home. PHYSICAL EXAMINATION: Vital Signs: Temperature 98.0 temporal, heart rate 56, respiratory 16, oxygen saturation 97% on room air, blood pressure 112/56. General: Ms. Castro is well-developed, well-nourished, obese, alert, white woman , who is sitting up in bed. She appears to be in no acute distress. She is pleasant, cooperative, and appropriate. HEENT: PERRL, EOMI without nystagmus. Hearing is grossly intact. Oral mucous membranes are moist. There are no lesions. Pharynx is clear. The tongue is at midline. Palate elevates symmetrically. Cardiovascular: Regular rate and rhythm. S1, S2 present. No murmurs, rubs, clicks, or gallops. There is no JVD or peripheral edema. Pulmonary: Symmetrical chest expansion without use of accessory muscles. Clear to auscultation bilaterally without rhonchi, wheezes, or rales. Abdomen: Bowel sounds in all quadrants. Soft and nontender to palpation. Neuro: The patient is awake. She is alert and oriented x3. Cranial nerves II through XII are grossly intact. She has a motor strength of 5/5 bilaterally in the upper and lower extremities. She is able to move all her extremities. DISCHARGE PLAN: Ms. Castro will be discharged to home. CONDITION: Good. DIET: Heart healthy. ACTIVITY: As tolerated. MEDICATIONS: No changes. EDUCATION: 1. Follow up with primary care provider within 4 to 7 days. 2. Return to the ER or nearest hospital if you experience any return or worsening of symptoms, chest pain or discomfort, shortness of breath, dizziness , lightheadedness, loss of consciousness, high fever, chills, night sweats, or any other worrisome signs or symptoms. This is a summarized report of a complex medical history and hospital stay. For further details, please see the entire medical record. TIME SPENT: Approximately 35 minutes was spent on this discharge, greater than half that time was spent [id number] with the patient discussing discharge plans and instructions. FIONA GOMEZ [id number]/[facility] #: [id number] DAVID
[2019-04-04] MEDS ORDERED: cefTRIAXone(*) 1 GM in NS 0.9% 50 ML* 50 ML IVPB SCH (04:00)
== END 2019-04-03 17:23 | disposition home or self-care (01) ==
LOC: ED 20:37 → MEDTELE 04-03 03:14
PROVIDERS: ADMIT Nurse Practitioner Family; ATTEND Internal Medicine
DX: R55 Syncope and collapse (principal); R42 Dizziness and giddiness; R82.71 Bacteriuria; N39.0 Urinary tract infection, site not specified; R00.1 Bradycardia, unspecified; I10 Essential (primary) hypertension; E78.5 Hyperlipidemia, unspecified; N80.9 Endometriosis, unspecified; Z87.442 Personal history of urinary calculi; Z88.1 Allergy status to other antibiotic agents; Z88.6 Allergy status to analgesic agent
CPT/HCPCS: 36415; 70450; 70496; 70498; 71045; 78452; 80048; 80053; 81003; 81015; 83735; 84443; 84484; 85025; 85610; 85730; 86140; 86618; 87086; 93005; 93017; 93306; 96365; 96372; 99284; A9502; G0378; J0696; J1644; J2785; Q9967